=== PATIENT | female | born 1995 | race African-American/Black ===

== ENCOUNTER 2020-11-17 00:16 | Emergency (ER) | payer MEDICAID ==
[~2020-11-17] VITALS: Ht 172.7 cm; Wt 78.0 kg
[2020-11-17] MEDS ORDERED: ONDANSETRON HCL 4MG/2ML INJ IV STA (01:21)
[2020-11-17] MEDS ORDERED: MORPHINE SULFATE 4 MG/ML CPJ (NOT FOR IM USE) IV STA (01:21)
[2020-11-17] MEDS ORDERED: SODIUM CHLORIDE 0.9% 1,000 ML IV ONE (01:30)
[2020-11-17 02:16] LABS: BASOPHILS % 0.5 % (0.0-2.0); CHLORIDE 110 mEq/L (98-107); EOSINOPHILS % 0.7 % (0.0-5.0); HEMATOCRIT. 33.9 % (36.0-48.0); LYMPHOCYTES % 12.5 % (20.0-50.0); MEAN CORPUSCULAR HEMOGLOBIN 26.7 pg (28.0-32.0); MEAN CORPUSCULAR VOLUME 82.2 fL (81.0-99.0); MEAN PLATELET VOLUME 8.8 fl (7.4-10.4); MONOCYTES % 6.5 % (2.0-8.0); NEUTROPHILS % 79.8 % (40.0-76.0); PLATELET 328 x1000/uL (130-400); RED BLOOD CELL COUNT 4.13 mill/uL (4.2-5.4); RED CELL DISTRIBUTION WIDTH 14.9 % (11.6-14.6)
[2020-11-17 02:19] LABS: HCG SCREEN NEGATIVE
[2020-11-17] MEDS ORDERED: MORPHINE SULFATE 4 MG/ML CPJ (NOT FOR IM USE) IV ONE ×2 (03:00→03:15)
[2020-11-17] MEDS ORDERED: HYDROMORPHONE HCL/PF 2MG/ML CPJ IV ONE (05:00)
[2020-11-17 08:38] VITALS: BP 94/52
== END 2020-11-17 09:05 | disposition short-term general hospital (02) ==
LOC: ER 00:16
DX: S82.891A Other fracture of right lower leg, initial encounter for closed fracture (principal); S92.351A Displaced fracture of fifth metatarsal bone, right foot, initial encounter for closed fracture; V43.12XA Car passenger injured in collision with other type car in nontraffic accident, initial encounter; Y93.89 Activity, other specified; Y92.410 Unspecified street and highway as the place of occurrence of the external cause
CPT/HCPCS: 29105; 29505; 36415; 71045; 72100; 73080; 73610; 73620; 80053; 84703; 85025; 93005; 96374; 96375; 96376; 99285; C1893; J1170; J2270; J2405; J7030; Z7610; A4565